=== PATIENT | female | born 1990 | race Caucasian/White ===

== ENCOUNTER 2021-04-30 22:41 | Emergency (ER) | payer OTHER ==
[~2021-04-30] VITALS: Ht 121.9 cm; Wt 50.0 kg
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
[2021-04-30] MEDS ORDERED: MORPHINE SULFATE 4 MG/ML, 1ML ONE (23:11)
[2021-04-30] MEDS ORDERED: DIPHENHYDRAMINE 50 MG/ML, 1ML ONE (23:11)
[2021-04-30] MEDS ORDERED: METOCLOPRAMIDE 5 MG/ML, 2ML ONE (23:11)
--- NOTE | 2021-04-30 23:25 | NUR ---
PIV placed, meds given per order, pt tolerated well. pt taken to CT at this time
[2021-04-30] MEDS ORDERED: METOCLOPRAMIDE 5 MG/ML, 2ML IVPush ONE (23:30)
[2021-04-30] MEDS ORDERED: DIPHENHYDRAMINE 50 MG/ML, 1ML IVPush ONE (23:30)
[2021-04-30] MEDS ORDERED: MORPHINE SULFATE 4 MG/ML, 1ML IVPush ONE (23:30)
--- NOTE | 2021-04-30 23:48 | NUR ---
pt back from ct
--- NOTE | 2021-05-01 00:03 | NUR ---
pt sleeping in bed, resps even and unlabored, vss, nadn.
--- NOTE | 2021-05-01 00:46 | NUR ---
leyla Kong at bedside to discuss results and POC
[2021-05-01 01:04] VITALS: BP 93/65
--- NOTE | 2021-05-01 01:42 | NUR ---
pt educated on dc instructions and return criteria, verbalized understanding. taken to dc desk via wheelchair, accmpanied by partner and friend. no complaints at time of dc
== END 2021-05-01 01:48 | disposition home or self-care (01) ==
LOC: ED 23:30
DX: S06.0X0A Concussion without loss of consciousness, initial encounter (principal); S30.0XXA Contusion of lower back and pelvis, initial encounter; R11.2 Nausea with vomiting, unspecified; F17.200 Nicotine dependence, unspecified, uncomplicated; W01.0XXA Fall on same level from slipping, tripping and stumbling without subsequent striking against object, initial encounter; Y93.89 Activity, other specified; Y92.812 Truck as the place of occurrence of the external cause; Y99.8 Other external cause status
CPT/HCPCS: 70450; 72110; 72220; 96374; 96375; 99284; J1200; J2270; J2765